=== PATIENT | female | born 1990 | race Caucasian/White ===

== ENCOUNTER 2017-02-26 07:28 | Emergency (ER) | payer OTHER ==
[~2017-02-26] VITALS: Ht 172.7 cm; Wt 69.5 kg
[~2017-02-26 07:28] MED LIST: ACET50TA PO; IBUP-1114 PO; PREN1CAP PO
[2017-02-26] MEDS ORDERED: ONDANSETRON 4 MG TAB (S0181) PO ONE (08:45)
[2017-02-26] MEDS ORDERED: ZOFR8TAB4 PO (09:43)
[2017-02-26 09:44] VITALS: BP 129/64
== END 2017-02-26 09:54 | disposition home or self-care (01) ==
LOC: M ED 07:28
DX: K52.89 Other specified noninfective gastroenteritis and colitis (principal); E86.0 Dehydration; F41.9 Anxiety disorder, unspecified; R05 Cough; F17.210 Nicotine dependence, cigarettes, uncomplicated; F12.10 Cannabis abuse, uncomplicated; Z88.0 Allergy status to penicillin; Z79.899 Other long term (current) drug therapy